=== PATIENT | female | born 1995 | race Hispanic/Latino ===

== ENCOUNTER 2024-03-29 11:48 | Inpatient (IN) | payer BC ==
[2024-03-29] MEDS ORDERED: HYDROcodone/Acetaminophen 5/325 mg Tablet PO PRN ×2 (12:55)
[2024-03-29] MEDS ORDERED: Lidocaine 1% (PF) 30 ML VIAL SC PRN (12:55)
[2024-03-29] MEDS ORDERED: hydrALAZINE 20 MG/ML VIAL SLOW IVP PRN (12:55)
[2024-03-29] MEDS ORDERED: Ibuprofen 800 MG TAB PO PRN (12:55)
[2024-03-29] MEDS ORDERED: Promethazine HCl 25 MG/ML VIAL IM PRN (12:55)
[2024-03-29] MEDS ORDERED: fentaNYL 50 mcg/mL 1 mL Vial SLOW IVP PRN (12:55)
[2024-03-29] MEDS ORDERED: Oxytocin 30 units/NS 500 ML 500 ML IV SCH (13:00)
[2024-03-29] MEDS ORDERED: Lactated Ringer's 1,000 ML IV SCH (13:00)
[2024-03-29] MEDS: Misoprostol 100 MCG TAB ONE (14:05)
[2024-03-29 14:23] LABS: Hematocrit 37.2 % (34.9-44.5); Hemoglobin 12.2 g/dL (12.0-15.5); Mean Corpuscular HGB CONC 32.8 g/dL (32.0-36.0); Mean Corpuscular Hemoglobin 28.8 pg (27.0-33.0); Mean Corpuscular Volume 87.7 fL (81.6-98.3); Mean Platelet Volume 12.3 fL (7.4-10.4); Platelet Count 203 10x3/uL (150-450); RBC Distribution Width 15.2 % (11.5-14.5); Red Blood Cell (RBC) Count 4.24 10x6/uL (3.90-5.03); White Blood Cell (WBC) Count 9.1 10x3/uL (3.5-10.5)
[2024-03-29 14:53] LABS: HBsAg Index 0.25 S/CO (0-0.99); Hep B Surf Ag - L&D Non-Reactive S/CO (NonReactive)
[2024-03-29 14:54] LABS: Syphilis Antibody Nonreactive (Nonreactive); Syphilis Antibody Index 0.14 S/CO (<1.00 Non-Reactive)
[2024-03-29] MEDS: Misoprostol 100 MCG TAB PO SCH (19:04)
[2024-03-30] MEDS ORDERED: Naloxone HCl 0.4 mg/ml Vial IVP PRN ×2 (00:42)
[2024-03-30] MEDS ORDERED: ePHEDrine Sulfate 50 MG/10 ML VIAL SLOW IVP PRN (00:42)
[2024-03-30] MEDS ORDERED: Moisturizing Cream (Eucerin) 113 GM JAR TOP PRN (00:42)
[2024-03-30] MEDS ORDERED: diphenhydrAMINE 50 MG/ML VIAL IVP PRN (00:42)
[2024-03-30] MEDS ORDERED: Lactated Ringer's 500 ML IV PRN (00:42)
[2024-03-30] MEDS ORDERED: Communication Order-Pharmacy FS SCH (00:45)
[2024-03-30] MEDS: Oxytocin 30 units/NS 500 ML 500 ML IV SCH (06:12)
[2024-03-30 06:30] VITALS: BMI 53.2
[2024-03-30] MEDS: Ondansetron PF 4 MG/2 ML Vial IVP PRN ×2 (08:07→14:28)
[2024-03-30] MEDS: fentaNYL 2 mcg/Ropivacaine 0.2% Epidural 100 ML CADD EPIDURAL SCH (10:39)
[2024-03-30] MEDS: Promethazine HCl 25 MG/ML VIAL IM PRN (14:38)
[2024-03-30 17:59] LABS: Analyzer IN Cardio CS NICU; RapidComm Collect By Nurse CHB
[2024-03-30 18:00] LABS: Analyzer IN Cardio CS NICU; pH (Cord, venous) 7.313 (7.250-7.350)
[2024-03-30] MEDS: Acetaminophen 325 MG TAB PO PRN (18:38)
[2024-03-30] MEDS: Ampicillin 2 GM in Sodium Chloride 0.9% 100 ML IVPB SCH (18:38)
[2024-03-30 18:54] LABS: Hematocrit 32.6 % (34.9-44.5); Hemoglobin 10.4 g/dL (12.0-15.5); Mean Corpuscular HGB CONC 31.9 g/dL (32.0-36.0); Mean Corpuscular Hemoglobin 28.3 pg (27.0-33.0); Mean Corpuscular Volume 88.8 fL (81.6-98.3); Mean Platelet Volume 12.6 fL (7.4-10.4); Platelet Count 188 10x3/uL (150-450); RBC Distribution Width 15.2 % (11.5-14.5); Red Blood Cell (RBC) Count 3.67 10x6/uL (3.90-5.03)
[2024-03-30 19:28] LABS: D-Dimer Test 5.01 mcg/mL (0.19-0.50); PTT 28.8 sec (22.0-33.0); Prothrombin Time 10.7 sec (9.5-12.1)
[2024-03-30] MEDS ORDERED: Bisacodyl 10 MG SUPP PR PRN (20:21)
[2024-03-30] MEDS ORDERED: Milk Of Magnesia 30 ML UDCUP PO PRN (20:21)
[2024-03-30] MEDS ORDERED: hydrALAZINE 20 MG/ML VIAL SLOW IVP PRN (20:21)
[2024-03-30] MEDS ORDERED: Lanolin Ointment 7 GM TUBE TOP PRN (20:21)
[2024-03-30] MEDS ORDERED: Boostrix 0.5 ML (Tdap) VIAL (>/=7 yrs of age) IM ONE (20:21)
[2024-03-30] MEDS ORDERED: Ondansetron PF 4 MG/2 ML Vial IVP PRN (20:21)
[2024-03-30] MEDS ORDERED: diphenhydrAMINE 25 MG CAP PO PRN (20:21)
[2024-03-30] MEDS ORDERED: Benzocaine-Menthol 82.5 ML CAN TOP PRN (20:21)
[2024-03-30] MEDS ORDERED: Preparation H Ointment 28 GM TUBE PR PRN (20:21)
[2024-03-30] MEDS ORDERED: Oxytocin 30 units/NS 500 ML 500 ML IV SCH (20:21)
[2024-03-30] MEDS: Ibuprofen 800 MG TAB PO SCH (20:36)
[2024-03-30] MEDS: Misoprostol 200 MCG TAB ONE (21:49)
[2024-03-30] MEDS: Carboprost 250 MCG/ML AMP ONE (21:49)
[2024-03-30] MEDS: Methylergonovine 0.2 MG/ML VIAL ONE (21:49)
[2024-03-30] MEDS: fentaNYL/Ropivacaine Epidural 100 ML ONE (21:49)
[2024-03-30] MEDS: Ampicillin 2 GM VIAL ONE (21:50)
[2024-03-30] MEDS: Tranexamic Acid 1,000 MG/10 ML VIAL ONE (21:50)
[2024-03-30] MEDS: HYDROcodone/Acetaminophen 5/325 mg Tablet PO PRN (21:55)
[2024-03-31 03:58] LABS: Hematocrit 29.8 % (34.9-44.5); Hemoglobin 9.7 g/dL (12.0-15.5)
[2024-03-31] MEDS: Docusate 100 MG CAP PO SCH (07:12)
[2024-03-31] MEDS: Ferrous Sulfate 325 MG TAB PO SCH (07:42)
[2024-03-31] MEDS: Prenatal Vitamin 1 TAB PO SCH (08:26)
[2024-03-31] MEDS ORDERED: Acetaminophen 325 MG TAB PO PRN (10:32)
[2024-03-31] MEDS ORDERED: HYDROcodone/Acetaminophen 10/325 mg Tablet PO PRN (10:32)
[2024-03-31] MEDS: HYDROcodone/Acetaminophen 5/325 mg Tablet PO PRN (20:48)
[2024-04-01 08:04] VITALS: BP 129/65; TEMP 97.9
== END 2024-04-01 14:25 | disposition home or self-care (01) | DRG 806 ==
LOC: CSHLD/OP 11:48 → CSHLD 13:30 → CSHPP 03-30 21:25
PROVIDERS: ADMIT Obstetrics & Gynecology; ATTEND Obstetrics & Gynecology
PROC: 10D07Z6 Extraction of Products of Conception, Vacuum, Via Natural or Artificial Opening (ICD-10-PCS; principal; 2024-03-30)
PROC: 0KQM0ZZ Repair Perineum Muscle, Open Approach (ICD-10-PCS; 2024-03-30)
PROC: 10H07YZ Insertion of Other Device into Products of Conception, Via Natural or Artificial Opening (ICD-10-PCS; 2024-03-30)
DX: O99.214 Obesity complicating childbirth (principal); D62 Acute posthemorrhagic anemia; Z37.0 Single live birth; Z3A.39 39 weeks gestation of pregnancy; E66.01 Morbid (severe) obesity due to excess calories; O70.1 Second degree perineal laceration during delivery; O76 Abnormality in fetal heart rate and rhythm complicating labor and delivery; O36.60X0 Maternal care for excessive fetal growth, unspecified trimester, not applicable or unspecified; O90.81 Anemia of the puerperium
CPT/HCPCS: 36415; 51702; 59020; 82805; 85014; 85018; 85027; 85049; 85300; 85362; 85384; 85610; 85730; 86780; 86850; 86900; 86901; 87340; 99285; J0290; J1580; J2405; J2550; J2590